=== PATIENT | male | born 1975 | race Caucasian/White ===

== ENCOUNTER → 2020-07-27 | Outpatient (CLI) | payer SELFPAY | LOC: M LABSMTC 12:39 | PROVIDERS: ATTEND Pediatrics | DX: Z20.822 Contact with and (suspected) exposure to COVID-19 (principal) ==

== ENCOUNTER → 2020-08-20 | Outpatient (CLI) | payer MEDICARE, MEDICAID ==
--- NOTE | 2020-08-20 08:57 | REP ---
INDICATION: COUGH COMPARISON: 04/13/2007 TECHNIQUE: PA and lateral. FINDINGS: Mediastinum and cardiac silhouette are within normal limits. Lung [place] demonstrate chronic appearing changes. No acute consolidation, effusion, or pneumothorax. Skeletal structures are intact. IMPRESSION: No acute cardiopulmonary process. If the patient remains symptomatic consider chest CT for further investigation. <Electronically signed by Eric Fish > 08/20/20 [id number]
== END ==
LOC: M WUC 08:39
PROVIDERS: ATTEND Physician Assistant
DX: R05 Cough (principal)

== ENCOUNTER 2020-08-27 09:46 | Emergency (ER) | payer MEDICARE, MEDICAID ==
[~2020-08-27] VITALS: Ht 167.6 cm; Wt 75.3 kg
[2020-08-27] MEDS ORDERED: MYRB50TA (10:06)
[2020-08-27] MEDS ORDERED: NS 1,000 ML IV ONE (10:25)
[2020-08-27] MEDS ORDERED: ISOVUE-370 76% 100ML VIAL As Ordered ONE (10:47)
[2020-08-27 10:48] LABS: BASO % 0.2 % (0.0-1.0); EOS # 0.1 10^3/uL (0.0-0.5); EOS % 2.5 % (0.0-3.0); HEMATOCRIT 49.1 % (42.0-52.0); HEMOGLOBIN 16.4 g/dl (13.5-17.5); LYMPH # 0.7 10^3/uL (1.5-5.0); LYMPH % 15.2 % (24.0-44.0); MEAN CORPUSCULAR HEMOGLOBIN 30.6 pg (27.0-33.0); MEAN CORPUSCULAR HGB CONC 33.4 g/dl (32.0-36.5); MEAN CORPUSCULAR VOLUME 91.6 fl (80.0-96.0); MONO # 0.5 10^3/uL (0.0-0.8); MONO % 11.1 % (2.0-8.0); NEUTROPHILS # 3.1 10^3/uL (1.5-8.5); NEUTROPHILS % 70.5 % (36.0-66.0); PLATELET COUNT, AUTOMATED 197 10^3/uL (150-450); RED BLOOD COUNT 5.36 10^6/uL (4.30-6.10); WHITE BLOOD COUNT 4.4 10^3/uL (4.0-10.0)
[2020-08-27 10:57] LABS: INR 0.95; PROTHROMBIN TIME 12.9 SECONDS (12.5-14.3)
[2020-08-27 11:08] LABS: PARTIAL THROMBOPLASTIN TIME 28.9 SECONDS (24.2-38.5)
--- NOTE | 2020-08-27 11:08 | REP ---
INDICATION: rectal bleeding. COMPARISON: None TECHNIQUE: Axial contrast-enhanced images from the lung bases to the pubic symphysis using 100 cc Isovue 370 intravenous contrast material. . This CT examination was performed using the following dose reduction techniques: Automated exposure control, adjustment of mA and/or kv according to the patient's size, and the use of iterative reconstruction technique. FINDINGS: Examination is limited by motion artifact through the abdomen and pelvis. Lung bases demonstrate minimal linear fibroatelectatic changes. Liver, spleen, pancreas, gallbladder, bilateral adrenal glands and kidneys are normal. There is short segment of mucosal thickening with pericolonic inflammatory stranding involving the mid sigmoid colon along with diffuse diverticulosis. Findings are most compatible with acute diverticulitis. No drainable collection/abscess. No ascites. No bowel obstruction. No free air to suggest perforation. Remainder of the colon demonstrates diverticulosis and fecal stasis. Stomach and small bowel are essentially normal in appearance. Pelvis demonstrates normal bladder and age-appropriate prostate/seminal vesicles. No ascites. No free air. No intraperitoneal or retroperitoneal adenopathy. Abdominal aorta and vasculature appear normal. Musculoskeletal structures are intact and without acute osseous abnormality. IMPRESSION: 1. Changes involving the mid sigmoid colon most compatible with acute diverticulitis. Correlation and follow-up recommended including colonoscopy to exclude further pathology. <Electronically signed by Eric Fish > 08/27/20 [id number]
[2020-08-27 11:17] LABS: ALBUMIN 3.7 GM/DL (3.2-5.2); BILIRUBIN,DIRECT 0.2 MG/DL (0.0-0.2); BILIRUBIN,TOTAL 0.6 MG/DL (0.2-1.0); TOTAL PROTEIN 7.4 GM/DL (6.4-8.2)
[2020-08-27] MEDS ORDERED: FLAG500T PO (11:34)
[2020-08-27] MEDS ORDERED: ONDA4TAB6 PO (11:34)
[2020-08-27] MEDS ORDERED: CIPR-249 PO (11:34)
[2020-08-27] MEDS ORDERED: CIPROFLOXACIN 500MG TABLET PO ONE (11:35)
[2020-08-27] MEDS ORDERED: metroNIDAZOLE (FLAGYL) 500MG TABLET PO ONE (11:35)
[2020-08-27 11:40] VITALS: BP 175/93
--- NOTE | 2020-08-27 13:04 | ED PDOC ---
Post-Departure Follow-Up ct abd/p faxed to dr nazario for fu Katy Cochran MD Aug 27, 2020 13:04
== END 2020-08-27 12:30 | disposition home or self-care (01) ==
LOC: M ED 09:46
DX: K57.32 Diverticulitis of large intestine without perforation or abscess without bleeding (principal); Z88.0 Allergy status to penicillin
CPT/HCPCS: 74177; 80047; 80076; 83690; 85025; 85610; 85730; 86850; 86900; 86901; 96360; 96361; 99284; Q9967

== ENCOUNTER → 2020-12-29 | Outpatient (CLI) | payer MEDICARE, MEDICAID ==
[~2020-12-29] MED LIST: CIPR-249 PO; FLAG500T PO; MYRB50TA PO; ONDA4TAB6 PO
== END ==
LOC: M LABSMTC 09:26
PROVIDERS: ATTEND Anesthesiology
DX: Z01.818 Encounter for other preprocedural examination (principal); Z11.52 Encounter for screening for COVID-19

== ENCOUNTER 2021-01-03 08:27 | Day surgery (SDC) | payer MEDICARE, MEDICAID ==
[~2021-01-03] VITALS: Ht 162.6 cm; Wt 70.8 kg
[~2021-01-03 08:27] MED LIST changes: +NS 1,000 ML IV ONE
[2021-01-03] MEDS ORDERED: propofoL 500 MG/50 ML VIAL As Ordered ONE (09:21)
[2021-01-03] MEDS ORDERED: LIDOCAINE 2% 100MG/5ML SDV (FOR ANES.) As Ordered ONE (09:21)
[2021-01-03] MEDS ORDERED: PHENYLephrine 500MCG 5ML (100MCG/ML) SYRINGE As Ordered ONE (09:34)
[2021-01-03] MEDS ORDERED: SIMETHICONE 40MG/0.6ML DROPS 30ML As Ordered ONE (09:36)
--- NOTE | 2021-01-03 09:45 | ROOR ---
Patient Name: Billy Cleaning Procedure Date: 01/03/2021 9:18 AM Date of : 1975 Age: 45 Room: [facility] Gender: Male Note Status: Finalized Procedure: Colonoscopy Indications: Rectal bleeding, Follow-up of diverticulitis Providers: Taco Jernigan Jr, MD Referring MD: Damián Florentino MD Requesting Provider: Medicines: Propofol per Anesthesia Complications: No immediate complications. Procedure: Pre-Anesthesia Assessment: - Prior to the procedure, a History and Physical was performed, and patient medications and allergies were reviewed. The patient is competent. The risks and benefits of the procedure and the sedation options and risks were discussed with the patient. All questions were answered and informed consent was obtained. Patient identification and proposed procedure were verified by the physician and the nurse in the pre-procedure area and in the procedure room. Mental Status Examination: alert and oriented. Airway Examination: normal oropharyngeal airway and neck mobility. Respiratory Examination: clear to auscultation. CV Examination: normal. ASA Grade Assessment: II - A patient with mild systemic disease. After reviewing the risks and benefits, the patient was deemed in satisfactory condition to undergo the procedure. The anesthesia plan was to use moderate sedation / analgesia (conscious sedation). Immediately prior to administration of medications, the patient was re-assessed for adequacy to receive sedatives. The heart rate, respiratory rate, oxygen saturations, blood pressure, adequacy of pulmonary ventilation, and response to care were monitored throughout the procedure. The physical status of the patient was re-assessed after the procedure. The Colonoscope was introduced through the anus and advanced to the cecum, identified by appendiceal orifice and ileocecal valve. The colonoscopy was performed without difficulty. The patient tolerated the procedure well. The quality of the bowel preparation was fair. Findings: Multiple small and large-mouthed diverticula were found in the transverse colon, ascending colon and cecum. Many small and large-mouthed diverticula were found in the sigmoid colon and descending colon. The rectum, appendiceal orifice and ileocecal valve appeared normal. Impression: - Preparation of the colon was fair. - Diverticulosis in the transverse colon, in the ascending colon and in the cecum. - Diverticulosis in the sigmoid colon and in the descending colon. - The rectum, appendiceal orifice and ileocecal valve are normal. - No specimens collected. Recommendation: - Discharge patient to home (ambulatory). - Repeat colonoscopy in 10 years for screening purposes. Procedure Code(s): --- Professional --- 02273, Colonoscopy, flexible; diagnostic, including collection of specimen(s) by brushing or washing, when performed (separate procedure) Diagnosis Code(s): --- Professional --- K62.5, Hemorrhage of anus and rectum K57.32, Diverticulitis of large intestine without perforation or abscess without bleeding K57.30, Diverticulosis of large intestine without perforation or abscess without bleeding CPT copyright 2019 [employer]. All rights reserved. The codes documented in this report are preliminary and upon link trainer operator review may be revised to meet current compliance requirements. Taco Jernigan MD Taco Jernigan Jr, MD 01/03/2021 9:44:55 AM Electronically signed by Taco Jernigan Jr, MD Number of Addenda: 0 Note Initiated On: 01/03/2021 9:18 AM Estimated Blood Loss: Estimated blood loss: none.
[2021-01-03 10:05] VITALS: BP 144/87
== END 2021-01-03 10:11 | disposition home or self-care (01) ==
LOC: M OPP 08:27
PROVIDERS: ATTEND Surgery
DX: K62.5 Hemorrhage of anus and rectum (principal); K57.32 Diverticulitis of large intestine without perforation or abscess without bleeding; K57.30 Diverticulosis of large intestine without perforation or abscess without bleeding; Q25 Congenital malformations of great arteries; Z79.899 Other long term (current) drug therapy; Z88.0 Allergy status to penicillin
CPT/HCPCS: 45378; J2370

== ENCOUNTER → 2022-04-22 | Outpatient (CLI) | payer MEDICARE, MEDICAID ==
[~2022-04-22] MED LIST changes: -NS 1,000 ML IV ONE
== END ==
LOC: M RAD 06:16
PROVIDERS: ATTEND Family Medicine
DX: I10 Essential (primary) hypertension (principal)

== ENCOUNTER 2024-04-19 08:49 | Emergency (ER) | payer MEDICARE, MEDICAID ==
[~2024-04-19] VITALS: Ht 175.3 cm; Wt 80.3 kg
[~2024-04-19 08:49] MED LIST changes: +ONDA-282 PO; -ONDA4TAB6 PO
[2024-04-19] MEDS ORDERED: ALBU8.5H (09:01)
[2024-04-19] MEDS ORDERED: DOXY100T (09:01)
[2024-04-19] MEDS ORDERED: PRED20TA (09:01)
[2024-04-19] MEDS ORDERED: BENZ200C70 (09:01)
[2024-04-19 12:49] VITALS: BP 161/97; TEMP 98.6; O2SAT 93
== END 2024-04-19 13:30 | disposition home or self-care (01) ==
LOC: M ED 08:49
DX: J20.9 Acute bronchitis, unspecified (principal); Z88.0 Allergy status to penicillin; Z79.51 Long term (current) use of inhaled steroids; Z79.2 Long term (current) use of antibiotics; Z79.899 Other long term (current) drug therapy